=== PATIENT | female | born 1950 | race Hispanic/Latino ===

== ENCOUNTER 2021-10-16 15:54 | Emergency (ER) | payer MEDICARE ==
[~2021-10-16] VITALS: Ht 157.5 cm; Wt 63.5 kg
[2021-10-16] MEDS ORDERED: SODIUM CHLORIDE 0.9% 1000ML 1,000 ML IV STA (16:13)
[2021-10-16] MEDS ORDERED: ONDANSETRON HCL INJ 2MG/ML 2ML 2 MG/ML VIAL IV ONE (16:15)
[2021-10-16] MEDS ORDERED: FAMOTIDINE 20 MG/2 ML VIAL IV ONE (16:15)
[2021-10-16] MEDS ORDERED: SODIUM CHLORIDE 0.9% 1000ML 1,000 ML ONE (16:33)
[2021-10-16] MEDS ORDERED: KETOROLAC TROMETHAMINE 30 MG/ML VIAL IV ONE (17:00)
[2021-10-16] MEDS ORDERED: IOPAMIDOL 370 MG/ML 200 ML INFUS..BTL INJ ONE (17:02)
[2021-10-16] MEDS ORDERED: SODIUM CHLORIDE 0.9% 50ML 0 ML ONE (17:02)
[2021-10-16] MEDS ORDERED: SODIUM CHLORIDE 0.9% 50ML 50 ML ONE (18:10)
[2021-10-16] MEDS ORDERED: MAALOX MAXIMUM355 ML PO (18:23)
[2021-10-16] MEDS ORDERED: FAMOTIDINE20 MG PO (18:23)
[2021-10-16] MEDS ORDERED: ONDANSETRON ODT4 MG PO (18:23)
[2021-10-16 18:30] VITALS: BP 124/51
== END 2021-10-16 18:38 | disposition home or self-care (01) ==
LOC: FSED 16:00
DX: R10.84 Generalized abdominal pain (principal); K52.9 Noninfective gastroenteritis and colitis, unspecified; K29.70 Gastritis, unspecified, without bleeding; R11.2 Nausea with vomiting, unspecified
CPT/HCPCS: 36415; 74177; 80053; 81003; 83690; 85025; 96374; 96375; 96376; 99284; J1885; J2405; J7030; Q9967